=== PATIENT | female | born 1975 | race American Indian/Alaskan Native ===

== ENCOUNTER 2016-07-21 15:01 | Emergency (ER) | payer MEDICAID ==
[2016-07-21 15:54] VITALS: BP 168/102
--- NOTE | 2016-07-21 17:12 | Emergency Department Report ---
Chief Complaint: High BP Stated Complaint: ELEVATED BP/PAIN IN ARM Time Seen by Provider: 07/21/16 17:05 - HPI History of Present Illness: 41-year-old female comes in for concern of elevated blood pressure. Patient reports a history of preeclampsia 8 years ago. She reports that she was at work and had a near syncopal moment was seen by the nurse blood pressure was elevated she came here to be evaluated. She denies any shortness of breath no nausea no vomiting. She did report nausea at work but that has all subsided. He denies any headache at this time. Not any chest pain. LMP 07/21/2016 - Exam Vital Signs: Vital Signs 07/21/16 15:47 Temperature 98.4 F Pulse Rate 86 Blood Pressure 168/102 O2 Sat by Pulse 100 Oximetry Physical Exam: Oriented 3 cardiovascular S1-S2 regular rate and rhythm respiratory clear to auscultation bilaterally extremities no edema noted. MSE screening note: Focused history and physical exam performed. Due to findings the following was ordered: Erythematous and SE provider. We will order a CBC CMP EKG was RA done. Patient be evaluated by the main ER ED Disposition for MSE Condition: Stable
[2016-07-21 17:32] LABS: Hemoglobin 12.5 gm/dl (10.1-14.3); Mean Corpuscular HGB Conc 32 % (30-34); Mean Corpuscular Hemoglobin 30 pg (28-32); Mean Corpuscular Volume 94 fl (79-97); Platelet Count 273 K/mm3 (140-440); Red Blood Count 4.16 M/mm3 (3.65-5.03); Red Cell Distribution Width 15.8 % (13.2-15.2); White Blood Count 4.9 K/mm3 (4.5-11.0)
[2016-07-21 17:51] LABS: BUN/Creatinine Ratio 15.55; Blood Urea Nitrogen 14 mg/dL (7-17); Calcium 8.7 mg/dL (8.4-10.2); Carbon Dioxide 25 mmol/L (22-30); Chloride 100.6 mmol/L (98-107); Glucose 86 mg/dL (65-100); Potassium 3.7 mmol/L (3.6-5.0); Sodium 138 mmol/L (137-145)
[2016-07-21 17:57] LABS: Anion Gap 16 mmol/L
--- NOTE | 2016-07-25 11:28 | ED Elopement Review ---
ED Pt Elopement review - Results review Lab results: Laboratory Tests 07/21/16 07/21/16 17:16 17:16 WBC 4.9 RBC 4.16 Hgb 12.5 Hct 39.0 MCV 94 MCH 30 MCHC 32 RDW 15.8 H Plt Count 273 Sodium 138 Potassium 3.7 Chloride 100.6 Carbon Dioxide 25 Anion Gap 16 BUN 14 Creatinine 0.9 Estimated GFR > 60 BUN/Creatinine Ratio 15.55 Glucose 86 Calcium 8.7 - Call Back decision Pt Call Back Decision: Call pt to return to ED [facility] (needs to be seen for ? pre ecclampsia)
== END 2016-07-22 | disposition left against medical advice (07) ==
LOC: ED 15:01
DX: R03.0 Elevated blood-pressure reading, without diagnosis of hypertension (principal); R55 Syncope and collapse; R11.0 Nausea; Z53.21 Procedure and treatment not carried out due to patient leaving prior to being seen by health care provider
CPT/HCPCS: 36415; 80048; 85027; 93005; 93010